=== PATIENT | male | born 1990 | race Caucasian/White ===

== ENCOUNTER 2021-07-25 04:09 | Emergency (ER) | payer MEDICAID ==
[~2021-07-25] VITALS: Ht 177.8 cm; Wt 82.0 kg
[2021-07-25 05:32] VITALS: BP 100/72
== END 2021-07-25 08:39 | disposition left against medical advice (07) ==
LOC: ER 04:09
DX: Z53.21 Procedure and treatment not carried out due to patient leaving prior to being seen by health care provider (principal)

== ENCOUNTER 2022-02-11 19:39 | Emergency (ER) | payer MEDICAID ==
[~2022-02-11] VITALS: Ht 175.3 cm; Wt 88.0 kg
[2022-02-11] MEDS ORDERED: ONDANSETRON HCL 4MG/2ML INJ IV STA (20:19)
[2022-02-11] MEDS ORDERED: MORPHINE SULFATE 4 MG/ML CPJ (NOT FOR IM USE) IV STA (20:19)
[2022-02-11] MEDS ORDERED: OLANZAPINE 10 MG/VIAL IM ONE (20:30)
[2022-02-11 23:45] LABS: CHLORIDE 111 mEq/L (98-107)
[2022-02-11 23:52] LABS: ETHANOL BLOOD 172 mg/dL
[2022-02-11 23:57] LABS: BASOPHILS % 0.4 % (0.0-2.0); HEMATOCRIT. 47.4 % (42.0-52.0); HEMOGLOBIN. 15.8 g/dL (14.0-18.0); LYMPHOCYTES % 20.4 % (20.0-50.0); MEAN CORPUSCULAR HEMOGLOBIN 30.9 pg (28.0-32.0); MEAN PLATELET VOLUME 11.1 fl (7.4-10.4); MONOCYTES % 9.6 % (2.0-8.0); NEUTROPHILS % 69.6 % (40.0-76.0); PLATELET 121 x1000/uL (130-400); RED BLOOD CELL COUNT 5.09 mill/uL (4.7-6.1)
[2022-02-12] MEDS ORDERED: FLUOXETINE HCL 10 MG CAPSULE PO SCH (10:30)
[2022-02-12 10:42] VITALS: BP 103/68
== END 2022-02-12 10:51 | disposition home or self-care (01) ==
LOC: ER 19:39
DX: T51.91XA Toxic effect of unspecified alcohol, accidental (unintentional), initial encounter (principal); Y92.9 Unspecified place or not applicable; F10.129 Alcohol abuse with intoxication, unspecified; Y90.6 Blood alcohol level of 120-199 mg/100 ml; F23 Brief psychotic disorder; R41.82 Altered mental status, unspecified
CPT/HCPCS: 36415; 70450; 71045; 80053; 80320; 85025; 96372; 96374; 96375; 99285; J2270; J2405; J3490; G0480